=== PATIENT | male | born 1940 | race Caucasian/White ===

== ENCOUNTER 2021-06-16 10:47 | Emergency (ER) | payer OTHER, MEDICARE ==
[~2021-06-16] VITALS: Ht 182.9 cm; Wt 79.4 kg
[2021-06-16 11:18] LABS: ABSOLUTE NEUTROPHILS 4.3 thou/uL (1.4-8.2); BASOPHILS 0.5 % (0.0-2.0); EOSINOPHILS 1.4 % (0.0-3.0); HEMATOCRIT 44.6 % (42.0-52.0); HEMOGLOBIN 14.9 gm/dL (14.0-18.0); LYMPHOCYTES 23.8 % (24.0-44.0); MCH 30.7 pg (26.0-34.0); MCHC 33.4 g/dL (28.0-37.0); MCV 91.8 fL (80.0-100.0); MONOCYTES 8.3 % (1.0-8.0); PLATELET COUNT 166 thou/uL (150-400); RBC 4.85 mil/uL (4.50-6.00); WBC 6.5 thou/uL (4.0-11.0)
[2021-06-16 11:29] LABS: URINE BILIRUBIN NEGATIVE (Negative); URINE BLOOD NEGATIVE (Negative); URINE CLARITY CLEAR; URINE COLOR YELLOW; URINE GLUCOSE-RANDOM* NEGATIVE (Negative); URINE KETONES NEGATIVE (Negative); URINE LEUKOCYTES-REFLEX NEGATIVE (Negative); URINE NITRITE-REFLEX NEGATIVE (Negative); URINE PROTEIN (DIPSTICK) NEGATIVE (Negative); URINE SPECIFIC GRAVITY >= 1.030 (1.005-1.035)
[2021-06-16 11:35] LABS: CALCIUM 8.8 mg/dL (8.5-10.1); CREATININE 1.1 mg/dL (0.7-1.3); POTASSIUM 4.3 mmol/L (3.5-5.1)
[2021-06-16 11:38] LABS: ALBUMIN 3.8 g/dL (3.4-5.0); TOTAL BILIRUBIN 0.8 mg/dL (0.2-1.0); TOTAL PROTEIN 7.1 g/dL (6.4-8.2)
[2021-06-16 12:39] VITALS: BP 111/69
--- NOTE | 2021-06-16 14:15 | EKG ---
[address] [place] [address] ELECTROCARDIOGRAM REPORT Name: AMOL SAUER Room #: DEP MANPREET Blood#: [id number] Admission: 06/16/21 Attend Phys: Discharge: 06/16/21 Date of : 40 Report #: [id number] [facility] ED Test Date: 2021-06-16 Test Time: 11:00:11 Pat Name: AMOL SAUER Department: Room: Gender: M Nicu Rn: : 1940 Requested By: Myles Boogie Order Number: [id number] MD: John Billy Measurements Intervals [place] Rate: 58 P: 3 WA: 234 QRS: 46 QRSD: 93 T: 52 QT: 416 QTc: 409 Interpretive Statements Sinus rhythm Atrial premature complex Prolonged WA interval Baseline wander in lead(s) II No previous ECG available for comparison Electronically Signed On 06-16-2021 14:14:46 CDT by John Billy [email or web address] <ELECTRONICALLY SIGNED> By: John Billy MD, [facility] 06/16/21 1414 1100 [facility] John Billy MD, FACKaylin /EPI
== END 2021-06-16 12:51 ==
LOC: EDBD 10:47 → ER 10:47
PROVIDERS: Emergency Medicine
DX: R41.82 Altered mental status, unspecified (principal); Z20.822 Contact with and (suspected) exposure to COVID-19; F91.1 Conduct disorder, childhood-onset type; R60.0 Localized edema

== ENCOUNTER 2021-06-16 13:22 | Inpatient (IN) | payer OTHER, MEDICARE ==
[~2021-06-16] VITALS: Ht 182.9 cm; Wt 90.7 kg
[2021-06-16 14:18] VITALS: BP 148/78
--- NOTE | 2021-06-16 14:30 | NUR ---
ARRIVES TO FLOOR VIA CART FROM ER AFTER COMPLETION OF MEDICAL EVAL. ARRIVES FROM [facility] WITH REPORTED AGGRESSIVE BEHAVIOR-MULTIPLE EPISODES OF COBATIVE BEHAVIOR IE HITTING BITING AND KICKING STAFF AND PEERS-USUALLY WITH INCONTINENT CARE-EXPOSING SELF TO PEERS AND URINATING IN VARIOUS PLACES INCLUDING OTHERS CLOSETS. REPORTED TO HAVE POOR SLEEP PER NURSING NOTES FROM [facility]. UPON ARRIVAL TO FLOOR ASSISTED TO BATHROOM BY 2 STAFF-HAD BEEN INCONTINENT OF LARGE AMOUNT OF URINE-DID BECOME PHYSICALLY COMBATIVE WITH CARES PROVIDED. VS OBTAINED AND ARE WNL. REMOVING CLOTJHING INCLUDING BRIEF AND WALKING IN HALLWAYS NAKED.SPEECH FRAGMENTED-UNABLE TO FORM COHESIVE SENTENCE-MIDWAY THROUGH SENTENCE WALKED OVER -REMOVED BRIEF AND URINATED INTO HEAT /COOLING REGISTER I ROOM. RECENT HX OF FALLS-SUBSTAINED LACERATION TO RIGHT FOREHEAD WHICH IUS CLEAN,DRY AND APPROXIMATED ON ADMIT. GAIT VERY UNSTEADY-REFUSES TO SIT DESPITE MULTIPLE/REPEATED REQUESTS BY STAFF
[2021-06-16 20:09] VITALS: BP 127/70
--- NOTE | 2021-06-17 03:28 | NUR ---
06/16/21 2200 DURING THIS SHIFT PATIENT WS INTRUSIVE COMBATIVE AND DISRUPTIVE. PATIENT WAS PACING THE FLOOR AND GETTING INTO ARGUMENTS WITH HIS PEERS. STAFF ATTEMPTED SEVERAL TIMES TO HAVE THE PATIENT SIT DOWN. STAFF NOTOFIED PROVIDER FOR PRN MEDICATIONS. PATIENT RECEIVED ATIVAN 1MG IM AND HALDOL 5MG IM FOR AGITATION. PATIENT IS ORIENTED TO HIS NAME ONLY. HE SPEAKS OFF TOPIC AND DOES NOT FOLLOW COMMANDS.
--- NOTE | 2021-06-17 07:28 | NUR ---
Late entry - called and spoke to and son. Emailed Welcome email to [email or web address] - answered questions and concerns. Pt's birthday was yesterday, [birth year] and son in favor of admission and claim they do not want him to return to [facility]. They are speaking with [facility] (sp?) homes in the [facility].
--- NOTE | 2021-06-17 08:36 | H ---
[facility] [address] [place] [address] HISTORY AND PHYSICAL Name: AMOL SAUER Room #: 528B-B ADM IN M.R.#: [id number] Admission: 06/16/21 Attend Phys: Arsh Dos Santos DO Discharge: Date of : 40 Report #: [id number] THIS REPORT FOR: cc: FAM - Family physician unknown FAM - Family physician unknown Arsh Dos Santos DO ~ DATE OF SERVICE: 06/16/2021 ATTENDING PSYCHIATRIST: Arsh Dos Santos DO MANAGER SEARCH: Dr. Hardin. REASON FOR ADMISSION: Problematic behaviors in the setting of dementia. SOURCES OF INFORMATION: Records from [facility]; telephone discussion with son, Miles and ER records. HISTORY OF PRESENT ILLNESS: An 80-year-old male with history of Alzheimer's dementia for about 9 years, since 2011. The patient has progressed and was placed in [facility] 05/30. Since then, he has had 2 falls and spent 2 days at [facility]. Apparently, there was an incident on 06/14 where he did fall back from losing balance and fell in a sofa. He has been resistive with care changes . On the , they were going to send him up to [facility] and something happened and they did not. His son states he was born and raised in [place], 9th grade education, 3 years in the [employer], [place] era, did not see . Worked at a gas station upon return. to his in 1967. They have been 53 years. They had two children, and a daughter in 2012 of cervical cancer at the age of 39. He has no history of concussion , seizures. Used to smoke from 1950s to 1975. No alcohol, no recreational drug use. He had his adult working career through [employer], [employer], etc. Son believed he retired in 2004. 's number is [phone], we will call her tomorrow morning. LABORATORY DATA: Today hematology is completely normal. White count 6.5, H and H 14.9 and 44.6, platelet count 166. Chemistry: Sodium 145, potassium 4.3, chloride 107, bicarbonate 33, anion gap 5, BUN 23, creatinine 1.1, estimated GFR 64, glucose 127, calcium 8.8. Total bilirubin 0.8, AST 25, ALT 23, alkaline phosphatase 85, total protein 7.1, albumin 3.8. TSH 0.696. Urinalysis is negative. COVID-19 Iqbal test is negative. Left knee was x-rayed at the hospitalist's orders and that showed no acute fracture, medial knee joint space [address] [address] HISTORY AND PHYSICAL Name: AMOL SAUER Room #: 528B-B ADM IN M.R.#: [id number] Admission: 06/16/21 Attend Phys: Arsh Dos aSntos DO Discharge: Date of : 40 Report #: [id number], moderate to severe medial meniscal degeneration, medial and lateral patellofemoral osteophyte formation and small joint effusion, read by Dr. Heard. MEDICATIONS AT THE HALFWAY: Tylenol daily, finasteride 5 mg daily, quetiapine 25 mg daily, tamsulosin 0.4 mg daily, trazodone 50 mg daily at 8:00 p.m. Otherwise, the PRNs. CURRENT MEDICATIONS IN THE HOSPITAL: Tamsulosin 0.4 mg daily, finasteride 5 mg p.o. daily, trazodone 50 mg p.o. at bedtime, Voltaren gel 4 grams 4 times a day to the left knee, famotidine 20 mg oral daily for GERD, Seroquel 25 mg oral 3 times a day. Hemoglobin A1c, lipids are pending. B12 and folate was ordered by hospitalist. PHYSICAL EXAMINATION: normal gait and station VITAL SIGNS: Today, temperature 97.0, pulse 76, respirations 14, BP 148/78. HEENT: Stitches over the left temporal area, left buddhist. MENTAL STATUS EXAMINATION: Well-developed, age-appearing male in yellow fall prevention shirt. He has a cautious gait on his left knee, a little bit of a hobble. Attention limited. Concentration impaired. mood/affect- congruent constricted Speech: Normal rate, volume, tone spontaneous. Denied SI, HI. Denied auditory, visual, or tactile hallucinations. Memory not formally tested, known to be impaired. Insight and judgment impaired. Fund of knowledge well below average. FORMULATION: An 80-year-old male sent out from [facility] for dementia with behavioral disturbance. 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 ADDITIONAL DIAGNOSES: Include benign prostatic hypertrophy, left knee severe arthritis. It looks like the patient's primary care physician is Dr. Dobson. PLAN: The patient is admitted via DPOA, incapacitated for healthcare general medical decisions. Evaluate, stabilize, obtain collateral. At this time, I added the Voltaren gel. We will keep the trazodone going at bedtime with tamsulosin and finasteride. I did increase his Seroquel from 25 mg a day to 25 mg at 9:00 a.m., 2:00 p.m. and 2100 hours. We will see how he does overnight. [facility] [address] [place] [address] HISTORY AND PHYSICAL Name: AMOL SAUER Room #: 528B-B ADM IN M.R.#: [id number] Admission: 06/16/21 Attend Phys: Arsh Dos Santos DO Discharge: Date of : 40 Report #: [id number] I need to talk to his tomorrow morning about med changes. Time spent on this case is at least 45 minutes. STRENGTHS: He is insured, supportive family. WEAKNESSES: Advanced age, advanced dementia. <ELECTRONICALLY SIGNED> By: Arsh Dos Santos DO 06/17/21 0836 1733 06 Arsh Dos Santos DO /nt
[2021-06-17 08:45] LABS: CHOLESTEROL 148 mg/dL (<200); HDL CHOLESTEROL 61 mg/dL (>40); LDL CHOLESTEROL 76 mg/dL (<100); TC:HDL 2.4 Ratio (Not establshd); TRIGLYCERIDE 55 mg/dL (<150); VLDL 11 mg/dL (<40)
[2021-06-17 09:27] VITALS: BP 131/69
--- NOTE | 2021-06-17 18:42 | NUR ---
INITIALLY THIS AM LEHTARGIC-RESTING QUIETLY WITH EYES CLOSED IN GERICHAIR IN DAYROOM UPON INITIAL ASSESSMENT AT 0745-WAS ROUSABLE TO VERBAL STIMULI AND WOULD TAKE BITES OF BREAKFAST WITH PROMPTING BUT AFTER 1-2 BITES WILL FALL BACK TO SLEEP. DR CRUZ NOTIFIED OF ABOVE PRIOR TO ADMINISTRATION OF AM MEDS CRUSHED IN PUDDING-HAS AMBULATED IN HALLWAYS X 3 WITH SBA X1 STAFF D/T UNSTEADY GAIT-RECENT HX OF FALLS . TOILETED Q 2-3 HOURSE AND REQUIRES ASSIST OF 2-3 STAFF FOR INCONTINENT CARE D/T INCREASED AGITATION,RESISITANCE WITH INCONTINENT CARE. MINIMALLY VERBAL AT TIMES WOULD RESPOND WOTH 1-2 WORDSWHEN QUESTIONS ASKED. ATE WELL WITH ASSISTANCE OF NURSING STAFF.
[2021-06-17 19:40] VITALS: BP 120/68
[2021-06-17 23:06] LABS: GLYCOHEMOGLOBIN (HGB A1C) 5.6 % (4.8-5.6)
--- NOTE | 2021-06-18 04:04 | NUR ---
06/17/21 - Pt is resting in chair with eyes closed will respond when approached. Pt took his medications crushed in vanilla pudding. He liked the vanilla pudding so much he ate a few spoonfuls. Pt is alert to self, does not exhibit any s/s of SI/HI/AH/VH, he is not agitated or combative. Did not want to lie in bed to sleep. will continue to monitor.
[2021-06-18 09:14] VITALS: BP 120/61
[2021-06-18 09:41] VITALS: BP 120/61
--- NOTE | 2021-06-18 12:09 | NUR ---
1200 RESUMMED CARE FROM OVERNIGHT SHIFT THIS AM, PATIENT ALERT ORIENTED TO SELF ONLY. PATIENT NOT ABLE TO TELL ME ABOUT SI/HI/AH/VH AT PRESENT DO TO COGNITIVE DO. PATIENTS ABDOMEN SOFT BOWEL SOUNDS PRESENT PATIENTS LUNGS CLEAR. PATIENT HAD A CT SCAN THIS AM DUE TO A FALL LAST NIGHT PATIENT CALM COOPERATIVE. PATIENT HAS NOT DISPLAYED ANY BEHAVIORS WILL CONTINUE TO MONITOR PATIENT FOR SAFETY AND BEHAVIORS.
[2021-06-18 19:40] VITALS: BP 120/69
[2021-06-18 19:52] VITALS: BP 120/69
--- NOTE | 2021-06-19 00:01 | NUR ---
Assumed care on 06/18/21 @ 1900, seated in a javier chair in the day room, often putting his feet down the side of the recliner footrest. Feet noted to be +3 edema. Voltaren gel applied to knees, and medications provided crushed in applesauce, snack fed at snack time. Transferred to bed @ 2300, bed in low position, bed alarm set, will continue to monitor as per unit protocol for safety and comfort.
[2021-06-19 09:34] VITALS: BP 124/67
[2021-06-19 11:33] VITALS: BP 124/67
--- NOTE | 2021-06-19 12:32 | NUR ---
SW met with pt to complete assessment. Pt. was not oriented and unable to answer any questions. Pt. had been attempting to adjust legs in the recliner. CM made phone contact with pt's , Mrs. Haque, at [phone]. Pt's provided some additional information regarding the pt not included in the consultation. Pt. was born and raised in [place], [place]. Pt. has 1 biological sister, Barrington, and 4 step-siblings. 3 step-siblings are older, 1 the same age and the biological sibling is younger. The pt's has not been able to get the pt. interested in doing much. The pt used to enjoy birdwatching and listening to hymns. While in the previous placement, staff would have residents bat at balls and balloons. The pt grew up Jew but attended [employer] advent[employer] with the and was actively involved. The pt's sounded tearful when stating that she now doesn't know if the pt. knows Dion anymore. The pt. receives approximately $2800 in SS and $1800 in pension. Mrs. Haque states the pt. is able to return to the previous placement; however, she does not feel they are able to meet his needs. She has identified [facility] as the placement for discharge.
--- NOTE | 2021-06-19 13:46 | NUR ---
1345 RESUMMED CARE FROM OVERNIGHT SHIFT THIS AM, PATIENT SITTING IN URSULA CHAIR QUIET. PATIENT ATE ALL HIS BREAKFAST TOOK MEDICATION CRUSHED IN APPLESAUCE. PATIENT IS UNABLE TO TELL ME ABOUT SI/HI/AH/VH AT PRESENT DUE TO NUERO COGNITIVE DO. I PUT MELISSA HOSE ON PATIENT FOR 3+ EDEMA IN BOTH FEET PATIENTS ABDOMEN SOFT BOWEL SOUNDS PRESENT. PATIENTS LUNGS CLEAR PATIENT HAS NOT DISPLAYED ANY BEHAVIORS ON THIS SHIFT. WILL CONTINUE TO MONITOR PATIENT FOR SAFETY AND BEHAVIORS.
[2021-06-19 19:40] VITALS: BP 102/58
[2021-06-19 20:40] VITALS: BP 118/62
--- NOTE | 2021-06-20 05:51 | NUR ---
06-19-21 CARE TRANSFERRED 1900 OBSERVED PT SITTING IN DINING ROOM IN RECLINER. LATER PT AAOX1, VSS, RR EVEN AND NONLABORED ON RA. PT DENIES SI/HI AND PAIN. PT REMAINS CALM AND COOPERATIVE THROUGHOUT NURSING ASSESSMENT. DURING MEDICATIN ADMIN PT WAS MAKING FACES AND SPITTING, BUT WAS COMPLIANT WITH MEDICATION CRUSHED IN PUDDING, PT HAD NO DIFFICULTIES. RECEIVED REPORT FROM WATER TAXI FERRY OPERATOR THAT PT HAD 3 LARGE VOIDS. PT DID DRINK 480ML OF WATER. PT WILL CONTINUE TO BE MONITOR PER [facility] PROTOCOL.
--- NOTE | 2021-06-20 08:39 | NUR ---
Assessed d/t new admit to [facility]. Admit dx Alzheimer's dementia with behaviors. Recent fall with sutures to L temporal area, now removed. >75% intakes on regular diet, meds given crushed in pudding or applesauce. 3+ edema noted to bilat feet. Meds reviewed. BMI 27, WNL for age. No hx weight loss indicated. With good dietary intakes, place at low nutrition risk at this time.
[2021-06-20 09:26] VITALS: BP 104/55
[2021-06-20 09:52] VITALS: BP 104/55
--- NOTE | 2021-06-20 11:01 | NUR ---
1100 RESUMMMED CARE FROM OVERNIGHT SHIFT THIS AM, PATIENT SITTING IN DAY ROOM IN URSULA CHAIR QUIET. PATIENT ATE BREAKFAST TOOK MEDICATION CRUSHED IN OATMEAL WITHOUT INCIDENCE. PATIENT UNABLE TO TELL ME ABOUT SI/HI/AH/VH AT PRESENT DUE TO COGNITIVE DO. PATIENTS ABDOMEN SOFT BOWEL SOUNDS PRESENT PATIENTS LUNGS CLEAR. PATIENT HAS NOT DISPLAYED ANY BEHAVIORS WILL CONTINUE TO MONITOR PATIENT FOR SAFETY AND BEHAVIORS.
[2021-06-20 19:00] VITALS: BP 147/115
[2021-06-20 19:20] VITALS: BP 144/82
--- NOTE | 2021-06-21 05:21 | NUR ---
06-20-21 CARE TRAMSFERRED AT 1900. LATER PT AAOX1, VSS, RR EVEN AND NONLABORED ON RA, PT DENIES SI/HI AND PAIN, AND OBSERVED NO S/S OF PAIN AND NO SI/HI BEHAVIORS. PT HAD MADED A REQUESTED TO GO AND LYE DOWN; PT RESPONSED TO BED ALARM AND PT VERY RESTLESS, PT WAS TRANSFERRED INTO RECLINER AND BROUGHT TO DAY ROOM. DURING MEDICATION PT HAD NO DIFFICULTIES. PT HAS BEEN CALM AND COOPERATIVE, BUT OFTEN PRESENTS PLEASENTLY CONFUSED. PT WILL CONTINUE TO BE MONITOR PER [facility] PROTOCOL.
[2021-06-21 09:58] VITALS: BP 119/58
--- NOTE | 2021-06-21 13:15 | NUR ---
Sleepy this AM but awakens easily. Alert to name only. Denies SI/HI. Able to stand with assist X 2 and ambulated approximately 20 feet with PT with walker. Breath sounds clear. Reg HR auscultated. Color pink with brisk capillary refill and palpable peripheral pulses. Brief dry. Active bowel sounds over soft, rounded abdomen. Erythema between buttocks, zpaste applied. Large fading bruise per R hip and buttock, scab to L knee. Currently sitting in dining room without s/o distress.
--- NOTE | 2021-06-21 16:24 | NUR ---
CM was able to talk to Yuval from [facility], . Yuval informed he has not accepted the Pt and could not give the family a guarantee. Yuval visited the Pt at [facility] on 06/16/2021. Yuval stated he had concerns about the Pt's behaviors and sleep. Also at that time the family was not in agreement with the Pt being medicated for behaviors. Yuval requested a referral be faxed. CM was able to fax the referral. CM will continue to follow
[2021-06-21 19:47] VITALS: BP 130/52
--- NOTE | 2021-06-22 05:03 | NUR ---
06-21-21 CARE TRANSFERRED 1899 OBSERVED PT SITTING IN RECLINER IN DAY ROOM, SUBSTATION ENGINEER REPORTED PT WAS HAD HEAVY BRIEF SOAKED WITH YELLOW URINE. LATER PT AAOX1, VSS, RR EVEN AND NONLABORED ON RA, PT DENIES SI/HI AND PAIN, OBSERVED NO S/S OF PAIN AND NO SI/HI BEHAVIORS. PT PRESENTS CONFUSED, BUT SMILING AND MAKES FACES OFTEN MAKING NOISES, PT REMAINED CALM AND COOPERATIVE. DURING MEDICATION ADMIN PT HAD NO DIFFICULTIE TAKING MEDICATION WITH WATER. PT WILL CONTINUE TO BE MONITOR PER [facility] PROTOCOL.
[2021-06-22 08:52] VITALS: BP 111/46
--- NOTE | 2021-06-22 18:20 | NUR ---
PATIENT CARE ASSUMED AT 0700 - BEEN SITTING IN URSULA CHAIR MOST OF DAY. CALM AND AGREEABLE. INCONTINENT OF URINE AT TIMES BUT KNOWS WHEN HE HAS TO GO. MEDICATIONS ADMINISTERED CRUSHED IN ICE CREAM. ALERT TO SELF - FIGGETY WHEN SEATED BUT EASILY REDIRECTED. PATIENT HAS PAIN IN BOTH KNEES BILATERALLY - HAS OINTMENT ORDERED AND APPLIED QID. PATIENT HAS GOOD APPETITE BUT NEEDS TO BE FED. LOOSES FOCUS OF FOOD AND DOES NOT EAT. STAFF ASSISTS PATIENT TO UTILIZE BATHROOM. PATIENT FAMILY CALLED TO CHECK ON PATIENT PROGRESS.
--- NOTE | 2021-06-22 22:50 | NUR ---
PATIENT ORIENTED TO PERSON ONLY RESTING IN RECLINER IN DAY ROOM. PATIENT IS CALM AND COOPERATIVE AT THIS TIME. PT WAS ESCORTED TO HIS ROOM TO BE BIRD RAISER HE HAS URINATED IN THE CHAIR. PT WAS ABLE TO STAND WITH MINIMAL ASSISTANCE HE WAS BEING CLEANED. PATIENT WAS TOOK ALL MEDICATIONS PRESCRIBED. PATIENT ATTEMPTED TO ANSWER QUESTIONS BUT WAS UNABLE TO PROPERLY PUT WORDS TOGETHER. NO SIGNS OF PAIN OR DISTRESS NOTED AT THIS TIME.
[2021-06-23 09:33] VITALS: BP 93/62
[2021-06-23 10:05] VITALS: BP 117/95
--- NOTE | 2021-06-23 10:31 | NUR ---
1130 RESUMMED CARE FROM OVERSHIFT THIS AM, PATIENT SITTING IN URSULA CHAIR IN DAY ROOM QUIET. PATIENT ALERT TO SELF ONLY PATIENT ATE BREAKFAST TOOK MEDICATION CRUSHED IN APPLESAUCE. PATIENT UNABLE TO TELL ME ABOUT SI/HI/AH/VH AT PRESENT DUE TO DEMENTIA. PATIENTS ABDOMEN SOFT BOWEL SOUNDS PRESENT PATIENTS LUNGS CLEAR. PATIENT HAS NOT DISPLAYED ANY BEHAVIORS AT PRESENT, WILL CONTINUE TO MONITOR PATIENT FOR SAFETY AND BEHAVIORS.
--- NOTE | 2021-06-23 13:45 | NUR ---
RT Progress Note- Ever has been present in the milieu each day since his admission. He is passive in recreation therapy groups d/t his cognition. Ever does not respond in complete sentences when spoken to, but is able to acknowledge his presence in groups. He has not displayed any poor behaviors during RT interaction. BIN OPERATOR will encourage continued presence in group.
--- NOTE | 2021-06-23 19:06 | NUR ---
[address] Hagan participated in a family meeting with Miles and Aditi concerning placement. CM informed that [facility] stated they could not give a guarantee on accepting the Pt. Miles expressed that this is not the information he was told. Miles wanted to get the display mechanic of [facility] added to the conversation. Miles attempted to call Mike at [facility] but was unable to get him on the phone. Miles did inform the Pt could not return to [facility] as they have given notice and moved the Pt's items out of the facility. A meeting was scheduled for 1430 later today. 939 CM recieved a call from Aditi stating Mike was on her other line and she wanted to add SW to the call. CM was added to the call. During the call Pt's progress was discussed and planned discharge date. Mike stated he was still unsure if he would be able to accept the Pt due to the Pt's needs and staffing issues. Mike did request updated notes on the Pt. CM and Dr. Hagan encouraged the family to look at other facilities and a referral can be sent to any facility of their choosing. Dr. Hagan encouraged the family to be diligent with the search as the Pt could discharge as soon as Sunday. There were no other questions or concerns. CM faxed updates to [facility]. CM also emailed a listing of [facility] to Miles at
[2021-06-23 19:55] VITALS: BP 136/88
--- NOTE | 2021-06-24 02:09 | NUR ---
PATIENT SITTING IN RECLINER IN COMMON AREA. PATIENT IS MORE ALERT AND AWARE TONIGHT. CONTINUES TO EXHIBIT CONFUSION BUT WAS FORMULATING SOME SENTENCES TONIGHT. HE REMAINS ORIENTED TO SELF ONLY. HE HAS REMAINED CALM AND COOPERATIVE. TAKES MEDICATIONS ORDERED. FOLLOWING MORE COMMANDS THAN PREVIOUSLY. PT IS UNSTEADY ON HIS FEET. NEEDS ASSISTANCE TO STAND FOR RESTROOM USE. SPOKE WITH PATIENTS REGARDING HIS STATUS. NO PAIN OR NEEDS NOTED OR VOICED. VSS. SEEMS TO BE SLEEPING BETTER WELL. WILL CONTINUE TO MONITOR FOR CHANGES IN PATIENT STATUS.
[2021-06-24 09:22] VITALS: BP 106/71
--- NOTE | 2021-06-24 14:17 | NUR ---
Alert and orientated to name only. States name and few brief words. Denies SI/HI. Breath sounds clear. Reg HR auscultated. Color pink with brisk capillary refill and palpable peripheral pulses.
[2021-06-24 19:40] VITALS: BP 138/66
--- NOTE | 2021-06-25 04:44 | NUR ---
PATIENT RESTING AT TABLE IN COMMON AREA. CONTINUES TO BE ALERT TO PERSON ONLY. HE IS MORE ALERT AND IS ABLE TO ANSWER SOME BASIC QUESTIONS. PATIENT TAKES HIS MEDICATIONS PRESCRIBED. VSS. PATIENT APPEARS TO HAVE WEAKNESS IN BLE STAFF HAS TO ASSIST HIM TO USE THE RESTROOM. NO SIGNS OR SYMPTOMS OF PAIN ARE NOTED. PATIENT WAS ABLE TO SLEEP IN HIS BED AGAIN TONIGHT WITHOUT ATTEMOTING TO CRAWL OUT. WILL CONTINUE TO MONITOR FOR CHANGE IN STATUS.
[2021-06-25 09:36] VITALS: BP 111/64
--- NOTE | 2021-06-25 15:52 | NUR ---
INITIALLY THIS AM SITTING QUIETLY IN DAYROOM IN RECLINER. DID SMILE AND WAS COOPERATIVE WITH ASSISTANCE FROM STAFF IN EATING BREAKFAST AND TAKING PO MEDICATIONS CRUSHED IN ICE CREAM-MINIMALLY VERBAL WHEN HE DOES SPEAK RESPONSES ARE DIFFICULT TO HEAR THEY ARE MUMBLED AND OFTEN TIMES CONVERSATION IS FRAGMENTED-INCOHERENT. RESISTIVE WITH INCONTINENT CARE GRABBING AT STAFF'S ARMS AND SQUEEZING TIGHTLY-REFUSING TO LET GO. AFTER LUNCH WAS ASSISTED TO BED X3 NURSING STAFF IN AN EFFORT TO CHANGE POSITION AND REDUCE PRESSURE TO REDDENED AREA ON COCYX-PLACED ON LEFT SIDE-APPROX 5 MINUTES LATER BED EXIT ALARM SOUNDED AND WAS NOTED TO HAVE BOTH LEGS OVER BED RAIL ATTEMPTING TO STAND UP STATES HE IS "GOING TO WORK"IS ABLE TO AMBULATE SHORT DISTANCES IE FROM CHAIR TO BR WITH MAX ASSISTED X1-2
[2021-06-25 20:15] VITALS: BP 132/76
--- NOTE | 2021-06-26 00:40 | NUR ---
PATIENT CARE WAS RESUMED AT 1900.HE WAS SITTING IN THE DINING AREA ON A RECLINER. ALERT AND CONFUSSED. LUNGS ARE CARE, BS ACTIVE X4 QUADS. DENIES PAINS. UNABLE TO VERBALIZE NEEDS AND STAFF ANTICIPATES PATIENT NEEDS. BED IS LOW, LOCKED AND ALARMED.HE IS INCONTINENT OF BOWEL AND BLADDER.
[2021-06-26 09:18] VITALS: BP 114/82
--- NOTE | 2021-06-26 16:22 | NUR ---
HAS BEEN VISIBLE IN DAYROOM MAJORITY OF SHIFT-SITTING QUIETLY WITH PEERS -PROVIDED SHAVE/ORAL CARETHIS AM AFTER BREAKFAST-REQUIRES TOTAL ASSIST WITH ALL ADLS INCLUDING EATING-DID EAT 100 PERCENT OF BREAKFAST. ATTEMPTED TO AMBULATE TO BATHROOM BUT WAS RESISTIVE-REFUSING TO STAND AND PULLING BACK AGAINST STAFF WITH ATTEMPTS TO STAND HIM UPRIGHT. PROVIDED WITH ROLLER WALKER-GAIT BELT ON BUT KICKS OUT AT ROLLER WALKER AND REFUSES TO FOLLOW VERBAL INSTRUCTIONS TO GRAB ONTO WALKER. AFTER LUNCH ASSISTED TO BED AND WOUND CARE-INCONTINENT CARE COMPLETED-PLACED ON RIGHT SIDE AND POSITIONING WEDGE APPLIED HE TURNS IMMEDIATLY BACK ONTO BACK WITHOUT WEDGE-MIDLINE COCYX SLIGHTLY REDDENED BUT NO OPEN AREAS NOTED-BARRIER CREAM APPLIED AND BRIEF REMOVED WHILE IN BED TO ALLOW OPEN TO AIR. TAKES MEDS CRUSHED IN ICE CREAM. WILL RESPONDAT TIMES TO YES AND NO QUESTIONS BUT OFFERS NO SPONTANEOUS VERBAL INTERACTION BUT
--- NOTE | 2021-06-26 16:59 | NUR ---
CM faxed referrals to Tommy and Mirela Erwin. CM team will remain available while on this unit.
[2021-06-26 19:15] VITALS: BP 130/78
--- NOTE | 2021-06-27 06:03 | NUR ---
06-26-21 CARE TRANSFERRED 1899 OBSERVED PT SITTING IN RECLINER IN DAY ROOM RESTING WITH EYES CLOSED. LATER PT AAOX1, VSS, RR EVEN AND NONLABORED ON RA, PT DENIES PAIN AND SI/HI AND OBSERVED NO S/S OF PAIN OR NO SI/HI BEHAVIORS. DURING MEDICATION ADMIN PT HAD NO DIFFICULTIES TAKING CRUSHED IN PUDDING. LATER PT WAS ASSISTED PT HAD BRIEF HEAVY WITH YELLOW URINE, SMEAR OF BM, NOTED REDNESS AND PT WAS CLEANED WITH SOAP AND WATER AND ZCREAM APPLIED AND PT WAS LEFT OPEN TO AIR IN BED. LATER PT HAD ANOTHER LARGE VOID, PT CLEANED USING SOAP/WATER THEN ZCREAM APPLIED AND CLEAN CHUX APPLIED AND PT LEFT OPEN TO AIR. PT BED ADJUSTED FOR COMFORT, LOWEST POSITION, LOCKED AND ALARM ON. PT WILL CONTINUE TO BE MONITOR PER [facility] PROTOCOL.
[2021-06-27 09:37] VITALS: BP 114/68
--- NOTE | 2021-06-27 11:21 | NUR ---
Followup: remains on [facility] unit since 06/16. Intakes have been more variable, from refusal to 100%. No new wt to assess. Receives finger foods. Will add ensure enlive and continue to follow intake trends. Remains low nutrition risk at this time.
--- NOTE | 2021-06-27 15:19 | NUR ---
11:11AM - Contacted [facility] ([phone]) regarding admission. Left a voice message with Nimisha in admissions. 11:40AM - Phone call to Mirela Erwin ([phone]) reagrding admission. Staff stated the referral had been received for the pt. However, the staff had a question as to the pt's aggression. The SW reviewed the nursing notes and informed staff that the pt does not appear to have had any recent episodes of aggression. The staff stated they would need to speak to the nurse but that most likely the pt would be accepted. 12:30PM - Phone call to Miles ([phone]), emergency DPOA and son of pt. Miles stated that he was under the impression that the pt. was being discharged today. The SW informed Miles that discharge would not occur today as confirmation of the pt's acceptance into a program has not been received. Miles stated that he received word that [facility] had denied placement; therefore, the pt. would attend [facility] which Miles is in support of. Miles has spoken to Vy at [facility] who he stated confirmed acceptance. The SW informed Miles that we would wait to hear back from [facility]. If they did not call by 3pm, then the SW would call. Phone call received from Vy of [facility]. The pt. has been accepted. Discharge was scheduled for Sunday, June 30 at 2:00pm. The SW will arrange transportation. The SW will send updates for today to the facility. Vy did request the doctor add a PRN script. The SW contacted the doctor who stated this would be fine. 1:55PM - Phone call to Miles. Miles was informed of the discharge. Miles had questions regarding medication. The SW informed Miles that he would need to speak to the doctor about the medication concerns. 2:46PM - Phone call to [employer] arranging transportation for the pt. Confirmation #: [id number] 3:17PM - Fax to Mirela Erwin ([phone]) - update for pt. Phone call to Mirela Erwin to obtain pharmacy. The pharmacy is [facility],
--- NOTE | 2021-06-27 15:56 | NUR ---
ATTEMPTED TO AMBULATE IN HALLWAY WITH ASSIST 3 STAFF/GAIT BELT,ROLLER WALKER-DID RISE TO PARTIAL STANDING POSITION AFTER 10-15 MINUTES OF COAXING-ABRUPTLY BEGAN TO PUSH BACK TOWARD WC WHICH IS BEING PUSHED BEHIND HIM AND ABRUPTLY BUCKLED KNEES-LOSING BALANCE AND CAUSING SUPERVISOR DOCK TO FALL TO KNEES-LABILE MOOD AT TIMES SMILING BRIGHTLY AT STAFF BUT THEN BECOMING COMBATIVE WITH INCONTINENT CARE OR POSTIION CHANGES. MINIMALLY VERBAL WILL OCASSIONALLY SAY YES/NO OR NOD HEAD. COCYX IS NOTED TO SLIGHTLY REDDENED DURING INCONTINENT CARE-PLACED IN BED AFTER LUNCH IN ATTEMPT TO DECREASE PRESSURE-IS MORE RESTLESS IN BED BED EXIT ALARM FREQUENTLY SOUNDING ATTEMPTING TO CRAWL OVER SIDERAILS OR BETWEEN THEM-POSITIONING WEDGE REINSERTED X3 WILL MOVE SELF IN BED UNTIL LAYING FLAT ON BACK. BS ACTIVE X4. APPETITE FAIR-ATTEMPTING TO EAT HAMBURGER AT LUNCH WITHOUT TEETH-WHEN STAFF ATTEMPTED TO PUT TEETH IN CLENCHED MOUTH TIGHTLY SHUT. REATTEMPTED IN 10 MINUTES AND DID STRIKE OUT AT NURSE AND IS SWEARING -3RD ATTEMPT SUCCESSFUL AND ABLE TO CHEW BURGER
--- NOTE | 2021-06-27 16:26 | NUR ---
Phone message received from Analisa of [facility] ([phone]) regarding the pt. and the need for continued services. Return phone call to Analisa. The SW recommended contacted the pt's DPOA to determine if they wanted to continue with the additional support for the pt.
[2021-06-27 20:20] VITALS: BP 149/90
--- NOTE | 2021-06-28 06:26 | NUR ---
06-28-21 CARE TRANSFERRED 1899. LATER PT AAOX2, VSS, RR EVEN AND NONLABORED ON RA. PT DENIES SI/HI AND PAIN, OBSERVED NO S/S OF PAIN OR NO SI/HI BEHAVIOR. PT BEEN CALM AND COOPERATIVE. DURING MEDICATION ADMIN PT HAD NO DIFFICULTIES TAKING MEDICATION CRUSHED IN PUDDING. LATER DURING CARES PT TOLERATED WELL. PT WILL CONTINUE TO BE MONITOR PER [facility].
[2021-06-28 09:37] VITALS: BP 167/87
--- NOTE | 2021-06-28 11:17 | NUR ---
1117 RESUMMED CARE FROM OVERNIGHT SHIFT THIS AM, PATIENT IN DAY ROOM IN [facility] SITTING QUIET. PATIENT IS ALERT TO SELF ONLY PATIENT ATE BREAKFAST WITH ASSISTANCE TOOK MEDICATION CRUSHED IN APPLESAUCE. PATIENT CANNOT TELL ME ABOUT SI/HI/AH/VH DUE TO COGNITIVE DO. PATIENTS ABDOMEN SOFT BOWEL SOUNDS PRESENT PATIENTS LUNGS CLEAR. PATIENT HAS NOT DISPLAYED ANY BEHAVIORS WILL CONTINUE TO MONITOR PATIENT FOR SAFETY AND BEHAVIORS.
[2021-06-28 11:34] VITALS: BP 167/87
[2021-06-28 19:25] VITALS: BP 150/85
[2021-06-28 20:40] VITALS: BP 150/85
--- NOTE | 2021-06-29 02:26 | NUR ---
PATIENT WAS RECLINING IN [facility] CHAIR AT A TABLE THIS EVENING WHEN ASSUMED CARE OF PATIENT AT 1900. HE HAD A CUP OF WATER WITH A STRAW THAT HE WOULD SIP ON AT TIMES, SPILLING ON HIMSELF AT TIMES. PATIENT WAS GIVEN HIS HS MEDS CRUSHED IN PUDDING THIS EVENING. HE ATE ALL OF THE PUDDING. PATIENT DENIES PAIN. NO SIGN OF SI/HI/AVH NOTED. PATIENT IS QUIET FOR MOST PART. HE IS A/0X1. PATIENT ASSISTED TO BED AND INCONTINENCE CARE DONE. BARRIER CREAM APPLIED TO ALMOST HEALED DENUDED AREA AT CRACK OF BUTTOCK. WEDGE PLACED UNDER PATIENT'S SIDE TO KEEP HIM OFF BUTTOCK AREA AND CHANGED TO OTHER SIDE WITH EACH INCONTINENCE CHECK. PATIENT HAS BEEN RESTING WITH EYES CLOSED SINCE GOING TO BED. HE HAS BEEN CALM AND COMPLIANT. ROUTINE ROUNDS TO ASSESS SAFETY AND STATUS OF PATIENT.
[2021-06-29 09:30] VITALS: BP 86/70
[2021-06-29 10:30] VITALS: BP 122/70
[2021-06-29] MEDS ORDERED: FLOMAX0.4 MG PO (11:49)
[2021-06-29] MEDS ORDERED: TRAZODONE HCL100 MG PO (11:50)
[2021-06-29] MEDS ORDERED: SEROQUEL 50 MG50 MG PO (11:51)
[2021-06-29] MEDS ORDERED: FINASTERIDE5 MG PO (11:53)
[2021-06-29 13:41] VITALS: BP 122/70
--- NOTE | 2021-06-29 13:57 | NUR ---
PATIENT WAS UP IN [facility], AND OUT ON THE UNIT WHEN CARE ASSUMED. PATIENT IS ALERT, FORGETFUL, AND PLEASANTLY CONFUSED. PATIENT NEED ASSIST OF STAFF TO FEED, AND TO COMPLETE ADL. PATIENT ATE GOOD BREAKFAST, BUT CHOOSE NOT EAT LUNCH DESPITE ENCOURAGEMENT FROM MULTIPLE STAFF. PATIENT TOOK ALL MEDICINE IN [place] WITHOUT DIFFICULTY. PATIENT IS NOT ABLE TO APPROPRIATELY RESPOND TO ASSESSMENT QUESTIONS DUE TO COGNITIVE IMPAIREMENT. NO AGITATION OR AGGRESSIVE BEHAVIOR NOTED. PATIENT IS DISCHARGING TODAY TO [facility]. REPORT CALLED TO NURSE (NIESHA TALLEY), AWAITING WHEELCHAIR VAN TRANSPORTATION TO PICK-UP. INCONTINENT CARE PROVIDIED PER STAFF, TEDHOSE IN PLACE TO BLE. NO SIGN OF ACUTE DISTRESS NOTED AT THIS TIME, WILL MONITOR FOR SAFETY.
--- NOTE | 2021-06-29 17:12 | NUR ---
5:12PM - SW contacted placement to inform delay in transportation of pt.
--- NOTE | 2021-06-30 21:05 | D ---
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 MEDICAL COMORBIDITIES: Include left knee pain, recent fall 2-1/2 weeks ago, forehead trauma. He had sutures removed during this admission. He has benign prostatic hypertrophy. The patient was a full code during this admission. The patient is being discharged to the [facility] in [place] for memory care. Psychiatric and medical care to be provided by receiving facility. DISCHARGE MEDICATIONS: Tamsulosin 0.4 mg oral daily for BPH, trazodone hydrochloride 150 mg oral at bedtime for sleep. Seroquel 50 mg oral daily at 0900, 1400 and 2100 hours for mood stabilization and psychosis. Finasteride 5 mg oral daily at 0900 hours for BPH. DIET: As follows: Regular finger foods plus an Ensure daily. He requires moderate assistance for any walking, requires feeding assistance, bathing assistance. No wound care noted. LABORATORY DATA: Significant laboratories this admission. Hematology: CBC was within normal limits with the exception of slightly low lymphocyte percentage of 23.8, high monocyte percentage at 8.3. The patient's electrolytes: Sodium 145, potassium 4.3, chloride 107, bicarbonate 33, anion gap 5, BUN 23, creatinine 1.1. Estimated GFR 64. Glucose 127. A1c 5.6. Calcium 8.8. Total bilirubin 0.8, AST 25, ALT 23, alkaline phosphatase 85. Total protein 7.1, albumin 3.8, triglycerides 55, cholesterol 148, LDL 76, HDL 61. Vitamin B12 level slightly low at 267. Folate 19.0. TSH 0.696. Urinalysis is completely normal. COVID-19 serology is negative. REASON FOR ADMISSION: An 81-year-old male, sent out from [facility]. The patient had been placed there 05/30 and has a history of Alzheimer's dementia dating back to 2011, was resistive with wound care changes, so he was sent out for dementia with behavioral disturbance picture. [address] [address] DISCHARGE SUMMARY Name: AMOL SAUER Room #: 528B-B [facility] IN M.R.#: [id number] Admission: 06/16/21 Attend Phys: Arsh Dos Santos, Discharge: 06/29/21 Date of : 40 Report #: [id number] HOSPITAL COURSE: The patient was admitted to Geriatric Psychiatry Unit. The patient was started on a dose of quetiapine, titrated to 50 mg oral 3 times a day. We had some difficulty with placement of him as his family had thought he had been accepted at [facility]. This turned out not to be true and we had to help them search for a new placement so that extent of this length of stay roughly a week. On the day of discharge, the patient was in stable condition. PHYSICAL EXAMINATION: VITAL SIGNS: Today, temperature 35.9, pulse 88, respirations 18, BP 120/70. MUSCULOSKELETAL: Seated in a Maribel chair, yellow falls prevention shirt on, unkempt. MENTAL STATUS EXAMINATION: This is a well-developed, well-appearing male, appearing older than stated age. Attention impaired. Concentration impaired. Speech: Verbally spontaneous. Thought process nonlinear. Thought content: Generalized poverty of thought. mood/affect- constricted, congruent Unable to assess well for suicidality, homicidality, auditory, visual or tactile hallucinations. The patient did not appear overtly preoccupied with external stimuli. Memory known to be impaired. Insight impaired, judgment is impaired. Fund of knowledge: Well below average. Prognosis for this patient is quite guarded given his age of 81, advanced neurodegenerative disease. <ELECTRONICALLY SIGNED> By: Arsh Dos Santos DO 06/30/212104 20 56 Arsh Dos Santos DO /nt
== END 2021-06-29 19:26 | DRG 57 ==
LOC: EDBD 13:22 → SBH 13:22
PROVIDERS: ADMIT Psychiatry & Neurology Psychiatry; ATTEND Psychiatry & Neurology Psychiatry
PROC: 8E09XY8 Suture Removal from Head and Neck Region (ICD-10-PCS; principal; 2021-06-26)
DX: G30.9 Alzheimer's disease, unspecified (principal); F02.81 Dementia in other diseases classified elsewhere, unspecified severity, with behavioral disturbance; N40.0 Benign prostatic hyperplasia without lower urinary tract symptoms; M17.12 Unilateral primary osteoarthritis, left knee; I10 Essential (primary) hypertension; I25.10 Atherosclerotic heart disease of native coronary artery without angina pectoris; Z60.2 Problems related to living alone; Z79.899 Other long term (current) drug therapy; Z91.81 History of falling
CPT/HCPCS: 10880